=== PATIENT | male | born 1965 | race Caucasian/White ===

== ENCOUNTER 2021-03-18 17:10 | Inpatient (IN) | payer BC ==
[~2021-03-18] VITALS: Ht 180.3 cm; Wt 99.0 kg
--- NOTE | ~2021-03-18 | PROC ---
[facility] [address] [place] [address] PROCEDURE REPORT Name: QUETA FERNANDEZ III Room: [address] IN [facility]#: [id number] Admission: 03/18/21 Attend Phys: Jessica Lawson MD Discharge: Date of : 63 Report #: [id number] THIS REPORT FOR: cc: FAM - No family physician/PCP FAM - No family physician/PCP [facility],Medical Records Staff ~ For GI report, please see the Provation report in Perceptive 7 content. By: [id number] Records Staff JOSE ANTONIO /KATELIN
[2021-03-18 17:20] VITALS: BP 139/75
[2021-03-18 17:48] LABS: CREATININE 1.4 mg/dL (0.6-1.3); POTASSIUM 3.2 mmol/L (3.5-5.1)
[2021-03-18 17:50] LABS: ABSOLUTE EOSINOPHILS 0.1 thou/uL (0.0-0.7); ABSOLUTE LYMPHOCYTES 1.1 thou/uL (0.8-5.3); ABSOLUTE MONOCYTES 2.5 thou/uL (0.0-1.2); ABSOLUTE NEUTROPHILS 11.7 thou/uL (1.6-8.1); BASOPHILS 0.2 %; EOSINOPHILS 0.9 %; HEMOGLOBIN 11.3 gm/dL (14.0-18.0); LYMPHOCYTES 7.2 %; MCH 35.2 pg (26.0-34.0); MCHC 35.3 g/dL (28.0-37.0); MCV 99.7 fL (80.0-100.0); MONOCYTES 16.3 %; MPV 8.9 fl. (7.2-11.1); NUCLEATED RBCS 0 /100WBC; POLYS 75.4 %; RBC 3.21 mil/uL (4.50-6.00); RDW-CV 16.8 % (10.5-14.5); WBC 15.6 thou/uL (4.0-11.0)
[2021-03-18 17:56] LABS: APTT 43.6 Seconds (25.0-31.3); INR 1.9; PROTIME 19.8 Seconds (9.20-11.50)
[2021-03-18 18:01] LABS: ALBUMIN 2.3 g/dL (3.4-5.0); TOTAL BILIRUBIN 28.2 mg/dL (<0.1-1.0); TOTAL PROTEIN 7.6 g/dL (6.4-8.2)
[2021-03-18 18:28] LABS: HYPOCHROMASIA 1+; PLATELET ESTIMATE DECREASED
[2021-03-18 18:29] LABS: MACROCYTES Occasional
[2021-03-18 18:31] LABS: TARGET CELLS 3+
[2021-03-18 18:33] LABS: PLATELET COUNT* 140 thou/uL (150-400)
[2021-03-18 20:15] VITALS: BP 120/62
[2021-03-18 20:16] LABS: URINE BLOOD NEGATIVE (Negative); URINE CLARITY CLEAR; URINE COLOR DARK YELLOW; URINE GLUCOSE-RANDOM TRACE (Negative); URINE KETONES NEGATIVE (Negative); URINE LEUKOCYTES-REFLEX NEGATIVE (Negative); URINE NITRITE-REFLEX NEGATIVE (Negative); URINE PROTEIN NEGATIVE (Negative); URINE SPECIFIC GRAVITY <= 1.005 (1.005-1.030); URINE UROBILINOGEN 0.2 E.U./dl (0.2-1.0)
[2021-03-18 20:18] LABS: URINE BILIRUBIN 3+ (Negative)
[2021-03-18 20:20] LABS: ICTOTEST (BILI CONFIRMATORY) Positive (Negative)
[2021-03-18 21:00] VITALS: BP 117/62
[2021-03-19 04:29] LABS: CALCIUM 7.9 mg/dL (8.5-10.1); CREATININE 1.2 mg/dL (0.6-1.3)
[2021-03-19 04:32] LABS: POTASSIUM 2.9 mmol/L (3.5-5.1)
[2021-03-19 04:43] LABS: HEMATOCRIT 28.9 % (42.0-52.0); HEMOGLOBIN 10.3 gm/dL (14.0-18.0); MCHC 35.8 g/dL (28.0-37.0); MCV 100.6 fL (80.0-100.0); RBC 2.87 mil/uL (4.50-6.00); RDW-CV 16.9 % (10.5-14.5); WBC 13.4 thou/uL (4.0-11.0)
[2021-03-19 07:20] VITALS: BP 108/61
[2021-03-19 10:38] LABS: INR 1.9; PROTIME 19.8 Seconds (9.20-11.50)
[2021-03-19 16:00] VITALS: BP 100/52
[2021-03-19 19:33] VITALS: BP 109/58
[2021-03-20 03:06] LABS: HEPATITIS B SURFACE AG Negative (Negative)
[2021-03-20 04:25] LABS: ABSOLUTE EOSINOPHILS 0.2 thou/uL (0.0-0.7); ABSOLUTE LYMPHOCYTES 0.8 thou/uL (0.8-5.3); ABSOLUTE MONOCYTES 1.6 thou/uL (0.0-1.2); ABSOLUTE NEUTROPHILS 8.8 thou/uL (1.6-8.1); BASOPHILS 0.3 %; EOSINOPHILS 1.5 %; HEMOGLOBIN 10.6 gm/dL (14.0-18.0); LYMPHOCYTES 6.7 %; MCH 35.7 pg (26.0-34.0); MCHC 35.4 g/dL (28.0-37.0); MONOCYTES 14.2 %; MPV 8.9 fl. (7.2-11.1); NUCLEATED RBCS 0 /100WBC; POLYS 77.3 %; RBC 2.97 mil/uL (4.50-6.00); WBC 11.3 thou/uL (4.0-11.0)
[2021-03-20 04:36] LABS: APTT 54.6 Seconds (25.0-31.3); INR 1.9; PROTIME 19.3 Seconds (9.20-11.50)
[2021-03-20 05:03] LABS: ALBUMIN 1.8 g/dL (3.4-5.0); CALCIUM 8.2 mg/dL (8.5-10.1); CREATININE 1.7 mg/dL (0.6-1.3); POTASSIUM 3.3 mmol/L (3.5-5.1); TOTAL BILIRUBIN 25.2 mg/dL (<0.1-1.0)
[2021-03-20 05:25] LABS: % SATURATION 97 % (20-39); IRON 88 ug/dL (50-175)
[2021-03-20 06:45] LABS: PLATELET COUNT* 125 thou/uL (150-400)
[2021-03-20 07:00] LABS: TOTAL PROTEIN 6.9 g/dL (6.4-8.2)
[2021-03-20 07:10] VITALS: BP 99/50
[2021-03-20 11:08] VITALS: BP 99/50
[2021-03-20 12:06] LABS: IgG 2419 mg/dL (603-1613); IgM 267 mg/dL (20-172)
[2021-03-20 17:34] VITALS: BP 99/55
[2021-03-20 20:18] VITALS: BP 104/57
[2021-03-21 03:48] VITALS: BP 119/66
[2021-03-21 05:31] LABS: HEMATOCRIT 28.8 % (42.0-52.0); HEMOGLOBIN 10.2 gm/dL (14.0-18.0); MCH 35.8 pg (26.0-34.0); MCHC 35.3 g/dL (28.0-37.0); MCV 101.2 fL (80.0-100.0); MPV 9.2 fl. (7.2-11.1); RBC 2.85 mil/uL (4.50-6.00); RDW-CV 17.1 % (10.5-14.5); WBC 14.7 thou/uL (4.0-11.0)
[2021-03-21 07:10] LABS: ALBUMIN 1.8 g/dL (3.4-5.0); CALCIUM 8.1 mg/dL (8.5-10.1); CREATININE 2.5 mg/dL (0.6-1.3); POTASSIUM 3.8 mmol/L (3.5-5.1); TOTAL BILIRUBIN 27.1 mg/dL (<0.1-1.0)
[2021-03-21 07:20] VITALS: BP 100/49
[2021-03-21 07:35] LABS: CERULOPLASMIN 20.8 mg/dL (16.0-31.0)
[2021-03-21 07:42] LABS: TOTAL PROTEIN 6.5 g/dL (6.4-8.2)
[2021-03-21 12:00] VITALS: BP 106/59
[2021-03-21 16:00] VITALS: BP 99/52
[2021-03-21 19:32] VITALS: BP 114/59
[2021-03-22 03:31] VITALS: BP 131/69
[2021-03-22 03:53] LABS: HEMATOCRIT 32.1 % (42.0-52.0); HEMOGLOBIN 11.1 gm/dL (14.0-18.0); MCH 35.3 pg (26.0-34.0); MCHC 34.7 g/dL (28.0-37.0); MCV 101.8 fL (80.0-100.0); MPV 9.2 fl. (7.2-11.1); RBC 3.16 mil/uL (4.50-6.00); RDW-CV 17.5 % (10.5-14.5); WBC 16.6 thou/uL (4.0-11.0)
[2021-03-22 04:11] LABS: CALCIUM 8.6 mg/dL (8.5-10.1); POTASSIUM 3.4 mmol/L (3.5-5.1)
[2021-03-22 04:22] LABS: APTT 51.5 Seconds (25.0-31.3); INR 1.9; PROTIME 19.8 Seconds (9.20-11.50)
[2021-03-22 07:35] VITALS: BP 94/46
[2021-03-22 13:51] LABS: ALBUMIN 1.9 g/dL (3.4-5.0); DIRECT BILIRUBIN 21.4 mg/dL (<0.1-0.3); TOTAL BILIRUBIN 29.4 mg/dL (<0.1-1.0)
[2021-03-22 14:14] LABS: TOTAL PROTEIN 5.3 g/dL (6.4-8.2)
[2021-03-22 16:40] VITALS: BP 118/65
[2021-03-22 20:30] VITALS: BP 111/61
[2021-03-23 04:35] LABS: HEMATOCRIT 26.9 % (42.0-52.0); HEMOGLOBIN 9.7 gm/dL (14.0-18.0); MCH 36.4 pg (26.0-34.0); MCV 101.1 fL (80.0-100.0); MPV 10.2 fl. (7.2-11.1); RBC 2.66 mil/uL (4.50-6.00); RDW-CV 17.2 % (10.5-14.5); WBC 15.2 thou/uL (4.0-11.0)
[2021-03-23 04:53] LABS: PROTIME 20.8 Seconds (9.20-11.50)
[2021-03-23 05:03] LABS: ALBUMIN 2.2 g/dL (3.4-5.0); CALCIUM 8.2 mg/dL (8.5-10.1); CREATININE 3.4 mg/dL (0.6-1.3); POTASSIUM 3.5 mmol/L (3.5-5.1); TOTAL BILIRUBIN 29.9 mg/dL (<0.1-1.0)
[2021-03-23 05:51] LABS: TOTAL PROTEIN 6.8 g/dL (6.4-8.2)
[2021-03-23 10:26] VITALS: BP 110/58
[2021-03-23 11:07] LABS: ANTI-DNA SCREEN 6 IU/mL (0-9); ANTI-RNP 0.8 AI (0.0-0.9); ANTI-SSA <0.2 AI (0.0-0.9); ANTIJO-I AB <0.2 AI (0.0-0.9)
[2021-03-23 16:06] VITALS: BP 108/61
[2021-03-23 19:33] VITALS: BP 119/62
[2021-03-24] VITALS (26 sets, daily range): BP systolic 86–119; BP diastolic 36–62
[2021-03-24 04:14] LABS: INR 2.2
[2021-03-24 04:33] LABS: ALBUMIN 2.9 g/dL (3.4-5.0); CALCIUM 8.2 mg/dL (8.5-10.1); CREATININE 3.3 mg/dL (0.6-1.3); HEMATOCRIT 24.4 % (42.0-52.0); HEMOGLOBIN 8.7 gm/dL (14.0-18.0); MCH 36.3 pg (26.0-34.0); MCHC 35.5 g/dL (28.0-37.0); MCV 102.3 fL (80.0-100.0); MPV 9.7 fl. (7.2-11.1); NUCLEATED RBCS 0 /100WBC; PLATELET COUNT* 66 thou/uL (150-400); POTASSIUM 3.3 mmol/L (3.5-5.1); RBC 2.38 mil/uL (4.50-6.00); RDW-CV 17.8 % (10.5-14.5); TOTAL BILIRUBIN 33.4 mg/dL (<0.1-1.0); TOTAL PROTEIN 6.7 g/dL (6.4-8.2)
[2021-03-24 05:44] LABS: ABSOLUTE LYMPHOCYTES 0.8 thou/uL (0.8-5.3); ABSOLUTE MONOCYTES 0.5 thou/uL (0.0-1.2); ABSOLUTE NEUTROPHILS 13.8 thou/uL (1.6-8.1); MYELOCYTES 1 %; PLATELET ESTIMATE DECREASED
[2021-03-24 05:45] LABS: HYPOCHROMASIA 1+; TARGET CELLS 1+; TOXIC GRANULATION 1+
[2021-03-24 05:46] LABS: ANISOCYTOSIS 1+; LARGE PLATELETS RARE; POIKILOCYTOSIS 1+
[2021-03-24 08:48] LABS: BE -4.7 mmol/L (-2 to +3); PCO2 31.3 mmHg (35.0-45.0); PO2 78.1 mmHg (75.0-100.0); pH 7.408 (7.340-7.450)
[2021-03-24 12:58] LABS: HEMATOCRIT 21.4 % (42.0-52.0); HEMOGLOBIN 7.5 gm/dL (14.0-18.0)
[2021-03-24 16:40] LABS: PCO2 34.5 mmHg (35.0-45.0); pH 7.374 (7.340-7.450)
[2021-03-24 16:44] LABS: PO2 152.1 mmHg (75.0-100.0)
--- NOTE | 2021-03-24 17:32 | 2DMMODE ---
[place] [address] 2 D/M-MODE ECHOCARDIOGRAM Name: JOSE RAMON FERNANDEZSharri Bell III Room: [address] IN [facility]#: [id number] Admission: 03/18/21 Attend Phys: Jessica Lawson MD Discharge: Date of : 63 Date of Service: 03/24/21 1732 Report #: [id number] THIS REPORT FOR: cc: FAM - No family physician/PCP FAM - No family physician/PCP Rip Baez MD [facility] ~ ADDENDUM APPROVED REPORT Study performed: 03/24/2021 15:28:36 EXAM: Comprehensive 2D, Doppler, and color-flow Echocardiogram Patient Location: In-Patient Room #: 008 Status: routine BSA: 2.19 HR: 94 bpm BP: 103/44 mmHg Rhythm: NSR Other Information Study Quality: Good Indications Dyspnea 2D Dimensions IVSd: 10.04 (7-11mm) LVOT Diam: 19.14 (18-24mm) LVDd: 55.41 mm PWd: 9.29 (7-11mm) Ascending Ao: 29.08 (22-36mm) LVDs: 25.40 (25-40mm) Aortic Root: 29.13 mm Volumes Left Atrial Volume (Systole) LA ESV Index: 37.50 mL/m2 Aortic Valve AoV Peak Danny.: 2.48 m/s AO Peak Gr.: 24.62 mmHg AO Mean Gr.: 12.32 mmHg AO V2 VTI: 39.89 cm Mitral Valve E/A Ratio: 1.14 [place] [address] 2 D/M-MODE ECHOCARDIOGRAM Name: JIMQUETA Bell III Room: [address]#: [id number] Admission: 03/18/21 Attend Phys: Jessica Lawson MD Discharge: Date of : 63 Date of Service: 03/24/21 1732 Report #: [id number] MV Decel. Time: 143.26 ms MV E Max Danny.: 1.46 m/s MV PHT: 41.54 ms MVA (PHT): 5.30 cm2 TDI E/Lateral E': 8.11 E/Medial E': 12.17 Medial E' Danny.: 0.12 m/s Lateral E' Danny.: 0.18 m/s Pulmonary Valve PV Peak Danny.: 1.75 m/s PV Peak Gr.: 12.22 mmHg Tricuspid Valve RAP Estimate: 5.00 mmHg TR Peak Gr.: 25.11 mmHg RVSP: 30.00 mmHg PA Pressure: 30.00 mmHg Left Ventricle The left ventricle is normal size. There is normal LV segmental wall motion. There is normal left ventricular wall thickness. Left ventricular systolic function is normal. The left ventricular ejection fraction is within the normal range. LVEF is 60-65%. The left ventricular diastolic function is normal. Right Ventricle The right ventricle is normal size. The right ventricular systolic function is normal. Atria Left atrium is mildly dilated. The right atrium size is normal. Aortic Valve Aortic valve is calcified. trace aortic regurgitation is present. There is mild aortic valvular stenosis. Mitral Valve There is mitral annular calcification. The mitral valve is normal in structure. There is no mitral valve regurgitation noted. No evidence of mitral valve stenosis. Tricuspid Valve The tricuspid valve is normal in structure. Trace tricuspid regurgitation. estimated pa pressure 30 [place] [address] 2 D/M-MODE ECHOCARDIOGRAM Name: JOSE RAMON FERNANDEZSharri Bell III Room: [address]#: [id number] Admission: 03/18/21 Attend Phys: Jessica Lawson MD Discharge: Date of : 63 Date of Service: 03/24/21 1732 Report #: [id number] Pulmonic Valve Pulmonic valve is not well visualized. There is no pulmonic valvular regurgitation. Great Vessels The aortic root is normal in size. IVC is not well visualized. Pericardium There is no pericardial effusion. <Conclusion> LVEF is 60-65%. Left atrium is mildly dilated. There is mild aortic valvular stenosis. trace aortic regurgitation is present. <ELECTRONICALLY SIGNED> By: Rip Baez MD, FACC 03/24/21 173 31 31 Rip Baez MD, FAC /INF
[2021-03-24 18:24] LABS: ABSOLUTE LYMPHOCYTES 0.6 thou/uL (0.8-5.3); ABSOLUTE MONOCYTES 0.9 thou/uL (0.0-1.2); ABSOLUTE NEUTROPHILS 22.1 thou/uL (1.6-8.1); BASOPHILS 0.1 %; HEMATOCRIT 20.4 % (42.0-52.0); HEMOGLOBIN 7.1 gm/dL (14.0-18.0); LYMPHOCYTES 2.3 %; MCH 35.1 pg (26.0-34.0); MCHC 34.8 g/dL (28.0-37.0); MCV 101.1 fL (80.0-100.0); MONOCYTES 3.8 %; MPV 9.9 fl. (7.2-11.1); NUCLEATED RBCS 0 /100WBC; PLATELET COUNT* 119 thou/uL (150-400); POLYS 93.8 %; RBC 2.02 mil/uL (4.50-6.00); RDW-CV 18.9 % (10.5-14.5); WBC 23.6 thou/uL (4.0-11.0)
[2021-03-24 18:28] LABS: CALCIUM 7.6 mg/dL (8.5-10.1); CREATININE 3.9 mg/dL (0.6-1.3); MAGNESIUM 2.7 mg/dL (1.8-2.4)
[2021-03-24 18:31] LABS: POTASSIUM 4.4 mmol/L (3.5-5.1)
[2021-03-24 18:39] LABS: APTT 48.1 Seconds (25.0-31.3); INR 1.8; PROTIME 18.4 Seconds (9.20-11.50)
--- NOTE | 2021-03-24 18:42 | CON ---
[address] [address] CONSULTATION Name: QUETA FERNANDEZ Ray SHARIF Room: [address] IN [facility]#: [id number] Admission: 03/18/21 Attend Phys: Jessica Lawson MD Discharge: Date of : 63 Report #: [id number] THIS REPORT FOR: cc: FAM - No family physician/PCP FAM - No family physician/PCP Mike Rodriguez MD ~ DOC #: [id number] Mike Rodriguez MD DATE OF CONSULTATION: 03/24/2021 REQUESTING PHYSICIAN: . INDICATION FOR CONSULTATION: Acute hypoxemic respiratory failure/respiratory distress. HISTORY OF PRESENT ILLNESS: This is a 55-year-old gentleman, past medical history is as mentioned below. The patient has not seen a physician for many years now. He was initially admitted on 03/18. He is in a hepatorenal syndrome, has both liver as well as renal failure. His creatinine has been worsening since admission. At one point, it was down to 1.2, initially was 1.4, is now up to 3.3. He is in acute renal failure. Therefore, the patient has been appropriately treated with albumin, unfortunately has not responded favorably. This morning, he has aspirated. He also is having significant epistaxis. Therefore, despite the fact that he was not maintaining O2 saturation on a 100% nonrebreather mask, we could not place him on a BiPAP. He was saturating only in the upper 80s on a 100% nonrebreather mask. We proceeded to endotracheally intubating him. He was fully awake prior to intubation. Upon intubation, we placed an OG and we have had around 500 mL of satish blood out in the OG. There is also bleeding from his endotracheal tube. The patient is difficult to sedate. We have him on Versed as well as a fentanyl drip and therefore, despite the fact that he is on hypotensive, I went ahead and started him on propofol as well, which would likely lead to him needing norepinephrine. The patient's INR is elevated and platelets are low. He does have abdominal distention. He does have swelling of lower extremities as well. REVIEW OF SYSTEMS: Negative for 12 points except as mentioned above. PAST MEDICAL HISTORY: The patient had not been to a physician for many years prior to this hospitalization, does have a history of rectal hemorrhoids. I do not have a measure of his left ventricular ejection fraction available at this time. SOCIAL HISTORY: He has a history of heavy alcohol intake, also is an active smoker and [place] [address] CONSULTATION Name: JOSE RAMON FERNANDEZSharri Bell III Room: [address] IN [facility]#: [id number] Admission: 03/18/21 Attend Phys: Jessica Lawson MD Discharge: Date of : 63 Report #: [id number] ALLERGIES: HE SAYS HE SWELLED UP WITH PENICILLINS MORE THAN 20 YEARS AGO, but he was rather vague in stating this. FAMILY HISTORY: There is no pertinent family history known at this time. PHYSICAL EXAMINATION: GENERAL: He was initially alert, awake and oriented, but saturating only 87-88% on a 100% nonrebreather mask and having an active epistaxis. We have since intubated him. VITAL SIGNS: His blood pressure is on the lower side at 80/40. He is tachycardic with heart rates up to 120. He is saturating in the mid 90s. He is currently on 100% FiO2, 600 tidal volume, AC rate set at 12. FiO2 is 100%, PEEP is 5. He is currently breathing at around 40 and we are in the process of sedating him. He has a low-grade fever of 37.4. Body mass index is 31. HEENT: Head is normocephalic and atraumatic. He does have significant jaundice. Pupils are equal and reactive. There is no throat erythema. There is blood in his throat. NECK: Does not show raised JVP, asymmetry, mass or lymph nodes. CHEST: Symmetrical expansion on inspection and palpation on auscultation. LUNGS: There are bilateral basal rales. He has increased work of breathing. HEART: Regular. There is tachycardia noted. Blood pressure as above is 80/40. ABDOMEN: Distended. There is some diffuse tenderness in his abdomen. LOWER EXTREMITIES: 3+ edema bilaterally. There is some vague calf tenderness as well. SKIN: Dry and intact. NEUROLOGIC: Moves all extremities bilaterally equally and spontaneously with no focal deficit identified. LABORATORY DATA: The patient's chest x-rays, ultrasound of abdomen, CT of the abdomen and pelvis as well as lab work in [facility] were reviewed. ASSESSMENT AND PLAN: 1. Acute hypoxemic respiratory failure. His prognosis is very poor. I discussed this with the patient as well as his family. They did want us to go ahead with endotracheal intubation and we proceeded with the same. We will sedate him and then obtain arterial blood gases. A followup chest x-ray has been obtained. Check propofol-related labs in the morning. Initially, due to elevation in lipase, I tried to avoid use of propofol; however, we were unable to adequately sedate otherwise, so temporarily, I have ordered propofol; we will try to take it off as soon as possible. 2. Aspiration pneumonia. Due to history of PENICILLIN ALLERGY, I ordered Levaquin as well as Flagyl, I do not feel strongly either way. Regarding use of a cephalosporin, it can potentially be considered. I would hold off on administering linezolid or vancomycin as there are significant [place] [address] CONSULTATION Name: QUETA FERNANDEZ III Room: [address] IN [facility].#: [id number] Admission: 03/18/21 Attend Phys: Jessica Lawson MD Discharge: Date of : 63 Report #: [id number] both. 3. Acute upper gastrointestinal bleed. I ordered blood products as well as octreotide and a Protonix drip. I also spoke to Dr. Jimenez with the Gastroenterology Service. 4. Chronic obstructive pulmonary disease. We will give him Solu-Medrol and nebulized bronchodilators. 5. Chronic liver disease/alcoholic hepatitis. He is on Solu-Medrol and I increased the dose as above. 6. Hepatorenal syndrome. Unfortunately, his prognosis is very poor. For now, since we are giving him blood products, I held off on more albumin. We will consider this later. We will give him Lasix if we are not able to ventilate or oxygenate adequately, but we will need to watch his renal function closely. 7. Acute renal failure. See discussion above. 8. Coagulopathy, low platelets and thrombocytopenia. See discussion above. 9. Fluid overload. I would also like to do an echocardiogram. I may also consider venous Dopplers. However, I am reversing his INR, which is due to chronic liver disease as above due to acute upper gastrointestinal bleed. The patient is critically ill at this time. Total time spent providing critical care to this patient today exceeds 48 minutes. MD FLORENTIN Vera/EKTA/YANIQUE <ELECTRONICALLY SIGNED> By: Mike Rodriguez MD 03/24/21 1842 1301 1429Achaim Rodriguez MD /nt
[2021-03-24 22:40] LABS: MCH 35.5 pg (26.0-34.0); MCHC 35.5 g/dL (28.0-37.0); MCV 100.2 fL (80.0-100.0); MPV 9.6 fl. (7.2-11.1); RBC 1.98 mil/uL (4.50-6.00); RDW-CV 18.9 % (10.5-14.5); WBC 22.5 thou/uL (4.0-11.0)
[2021-03-24 22:44] LABS: HEMATOCRIT 19.8 % (42.0-52.0)
[2021-03-24 22:52] LABS: APTT 51.3 Seconds (25.0-31.3); INR 1.9; PROTIME 19.4 Seconds (9.20-11.50)
[2021-03-25] VITALS (52 sets, daily range): BP systolic 92–121; BP diastolic 36–51
[2021-03-25 05:57] LABS: ABSOLUTE LYMPHOCYTES 0.5 thou/uL (0.8-5.3); ABSOLUTE MONOCYTES 1.3 thou/uL (0.0-1.2); BASOPHILS 0.1 %; HEMATOCRIT 22.3 % (42.0-52.0); HEMOGLOBIN 7.9 gm/dL (14.0-18.0); LYMPHOCYTES 2.4 %; MCH 34.9 pg (26.0-34.0); MCHC 35.5 g/dL (28.0-37.0); MCV 98.4 fL (80.0-100.0); MONOCYTES 5.9 %; MPV 9.7 fl. (7.2-11.1); NUCLEATED RBCS 0 /100WBC; PLATELET COUNT* 117 thou/uL (150-400); POLYS 91.6 %; RBC 2.27 mil/uL (4.50-6.00); RDW-CV 19.1 % (10.5-14.5); WBC 21.8 thou/uL (4.0-11.0)
[2021-03-25 06:31] LABS: INR 1.9; PROTIME 19.8 Seconds (9.20-11.50)
[2021-03-25 06:39] LABS: PHOSPHORUS* 5.6 mg/dL (2.5-4.9)
[2021-03-25 06:50] LABS: ALBUMIN 2.5 g/dL (3.4-5.0); CALCIUM 7.5 mg/dL (8.5-10.1); CREATININE 4.4 mg/dL (0.6-1.3); POTASSIUM 4.1 mmol/L (3.5-5.1); TOTAL BILIRUBIN 32.5 mg/dL (<0.1-1.0)
[2021-03-25 07:11] LABS: TOTAL PROTEIN 5.5 g/dL (6.4-8.2)
--- NOTE | 2021-03-26 10:21 | CON ---
[address] [address] CONSULTATION Name: QUETA FERNANDEZ Ray SHARIF Room: [address]#: [id number] Admission: 03/18/21 Attend Phys: Jessica Lawson MD Discharge: 03/25/21 Date of : 63 Report #: [id number] THIS REPORT FOR: cc: REUBEN - No family physician/PCP REUBEN - No family physician/PCP Nelson Cobian MD ~ DOC #: [id number] Nelson Cobian MD DATE OF CONSULTATION: 03/23/2021 REQUESTING PHYSICIAN: Dr. Marin. REASON FOR CONSULTATION: Hepatorenal syndrome. 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 He was admitted to the hospital on 03/18/2021. Paracentesis was done. Dr. Marin was on the case. Later on, his condition deteriorated. So yesterday, he developed renal failure. His creatinine went up from 1.4 to 1.7, then 2.5 and 3.4 today. His urine output is decreased. His total bilirubin is 29.9. His INR is 2, PTT is elevated. Clearly his liver functions are deteriorating as well and he developed hepatorenal syndrome. Ammonia level was as high as 76 yesterday is 27 today. SOCIAL HISTORY: Positive for alcoholism. FAMILY HISTORY: Negative for renal disease. REVIEW OF SYSTEMS: Unobtainable due to him being lethargic today. PHYSICAL EXAMINATION: GENERAL: Lethargic. VITAL SIGNS: Blood pressure 110/58, heart rate 84, afebrile. SKIN: Very yellow. HEENT: Sclerae jaundiced. NECK: Supple. LUNGS: Decreased air movements. CARDIOVASCULAR: Regular rate. ABDOMEN: Soft. EXTREMITIES: Lower extremities, 2-3+ edema. ASSESSMENT: 1. Acute kidney injury due to hepatorenal syndrome. 2. Hepatorenal syndrome due to [place] [address] CONSULTATION Name: QUETA FERNANDEZ Ray SHARIF Room: [address]#: [id number] Admission: 03/18/21 Attend Phys: Jessica Lawson MD Discharge: 03/25/21 Date of : 63 Report #: [id number] 3. Alcoholism. PLAN: Overall, his prognosis is very poor. Unless he is a candidate for liver transplant, there is no dialysis for this patient. Discussed with his . Continue treatment with albumin and midodrine. Also, he is taking octreotide safely. If does not improve over the next day or two, I would consider hospice. Discussed with his and with . MD KJ Garrido <ELECTRONICALLY SIGNED> By: Nelson Cobian MD 03/26/21 1021 1046 2051Alexrosetta Cobian MD /nt
== END 2021-03-25 18:08 | DRG 432 ==
LOC: M.ERS 17:10 → M.ICU 18:37 → M.TBA-ER 18:37 → M.ORTHSURG 18:37 → M.ICU 03-24 11:19
PROVIDERS: Internal Medicine; Internal Medicine Critical Care Medicine; Internal Medicine Gastroenterology; Internal Medicine Nephrology; Nurse Practitioner Adult Health; Nurse Practitioner Family; ADMIT Family Medicine; ATTEND Family Medicine
PROC: 0DJ08ZZ Inspection of Upper Intestinal Tract, Via Natural or Artificial Opening Endoscopic (ICD-10-PCS; principal; 2021-03-20)
PROC: 30233R1 Transfusion of Nonautologous Platelets into Peripheral Vein, Percutaneous Approach (ICD-10-PCS; 2021-03-24)
PROC: 0BH17EZ Insertion of Endotracheal Airway into Trachea, Via Natural or Artificial Opening (ICD-10-PCS; 2021-03-24)
PROC: 5A1935Z Respiratory Ventilation, Less than 24 Consecutive Hours (ICD-10-PCS; 2021-03-24)
PROC: 30233N1 Transfusion of Nonautologous Red Blood Cells into Peripheral Vein, Percutaneous Approach (ICD-10-PCS; 2021-03-24)
PROC: 30233K1 Transfusion of Nonautologous Frozen Plasma into Peripheral Vein, Percutaneous Approach (ICD-10-PCS; 2021-03-24)
PROC: 30233M1 Transfusion of Nonautologous Plasma Cryoprecipitate into Peripheral Vein, Percutaneous Approach (ICD-10-PCS; 2021-03-25)
DX: K70.31 Alcoholic cirrhosis of liver with ascites (principal); J96.01 Acute respiratory failure with hypoxia; J69.0 Pneumonitis due to inhalation of food and vomit; N17.0 Acute kidney failure with tubular necrosis; F10.239 Alcohol dependence with withdrawal, unspecified; K92.2 Gastrointestinal hemorrhage, unspecified; D68.9 Coagulation defect, unspecified; E87.1 Hypo-osmolality and hyponatremia; I85.10 Secondary esophageal varices without bleeding; K76.6 Portal hypertension; D62 Acute posthemorrhagic anemia; Y90.9 Presence of alcohol in blood, level not specified; F12.90 Cannabis use, unspecified, uncomplicated; E80.6 Other disorders of bilirubin metabolism; J44.9 Chronic obstructive pulmonary disease, unspecified; E87.6 Hypokalemia; D69.6 Thrombocytopenia, unspecified; D72.829 Elevated white blood cell count, unspecified; K70.11 Alcoholic hepatitis with ascites; R04.0 Epistaxis; K21.00 Gastro-esophageal reflux disease with esophagitis, without bleeding; K44.9 Diaphragmatic hernia without obstruction or gangrene; K31.89 Other diseases of stomach and duodenum; Z51.5 Encounter for palliative care; Z20.822 Contact with and (suspected) exposure to COVID-19; Z88.0 Allergy status to penicillin